=== PATIENT | male | born 1965 | race Caucasian/White ===

== ENCOUNTER → 2020-02-15 15:19 | Outpatient (CLI) | payer BC, SELFPAY ==
--- NOTE | 2020-02-15 | COLBX_PTH ---
PATIENT: LYNN OSORIO LOC: [facility] U#:[id number] AGE/SX: 59/M ROOM: RE02/15/[address]: Dr. Gal Rodriguez MD : 1965 BED: DIS: SPEC #: [id number] RECD: 02/15/20 15:13 STATUS: HAZEL SARKIS #: [id number] MILENA: 02/15/20 00:[address]: Gal Rodriguez DEPT: SURGICAL PATHOLOGY RECD BY: Charles Oliveira ENTERED: 02/18/20 08:46 SP TYPE: COLON BX OTHR DR: INO Tissues: A - Right colon B - Sigmoid colon biopsy Procedures: Surgery Specimen Level IV HEADER OPERATION: Colonoscopy with biopsies PRE-OP DIAGNOSIS: History UC; diarrhea TISSUE SUBMITTED: A - Biopsy right colon, rule out UC, B - Biopsy distal sigmoid/rectum, rule out active UC/dysplasia MICROSCOPIC DIAGNOSIS A. Right colon, biopsy: Melanosis coli. No evidence of colitis. B. Distal sigmoid/rectum, biopsy: Focal acute colitis. See microscopic description and comment. AM:kristie 02/19/20 COMMENT B. Eosinophils are mildly increased in the mucosa. The significance of this is unclear. Clinical correlation is suggested. MICROSCOPIC DESCRIPTION Slides are reviewed. B. There is focal cryptitis identified without crypt abscesses, ulceration or significant glandular distortion. GROSS DESCRIPTION A - Received in fixative is one container labeled with the patient's name and designated right colon biopsy. The specimen consists of multiple irregular fragments of light rojas soft tissue that in aggregate measure 1 x 0.5 x 0.1 cm. The specimen is totally submitted in one cassette. B - Received in fixative is one container labeled with the patient's name and designated distal sigmoid. The specimen consists of multiple irregular fragments of light rojas soft tissue that in aggregate measure 0.5 x 0.5 x 0.1 cm. The specimen is totally submitted in one cassette. / AM:kristie 02/18/20 TC:2 CPT: 10167 x2
== END ==
PROVIDERS: Referring Provider Internal Medicine Gastroenterology; Visit Provider Internal Medicine Gastroenterology
DX: K51.90 Ulcerative colitis, unspecified, without complications (principal); R19.7 Diarrhea, unspecified
CPT/HCPCS: 88305

== ENCOUNTER 2020-06-06 09:30 | Outpatient (RCR) | payer BC, SELFPAY ==
[2020-05-30] MEDS: COVID-19 VACC, MRNA(PFIZER)/PF 30 MCG/0.3 ML SYRINGE IM (07:04)
[2020-06-20] MEDS: COVID-19 VACC, MRNA(PFIZER)/PF 30 MCG/0.3 ML SYRINGE IM (06:52)
== END 2020-06-06 23:59 ==
LOC: IMMUN 09:30
PROVIDERS: PCP Family Medicine; Visit Provider Family Medicine
DX: Z23 Encounter for immunization (principal)
CPT/HCPCS: 0001A; 0002A; 91300

== ENCOUNTER → 2020-11-11 13:59 | Outpatient (CLI) | payer BC, SELFPAY ==
--- NOTE | 2020-11-11 14:04 | RAD_ITS ---
INDICATION: PAIN EXAMINATION/TECHNIQUE: X-RAY - XR Chest 2 Views COMPARISON: None. FINDINGS: LINES/DEVICES: None. LUNGS: No consolidation, edema or effusion. No pneumothorax. MEDIASTINUM AND CARDIOVASCULAR STRUCTURES: Cardiac silhouette not enlarged. Central airways and mediastinal contour are unremarkable. BONES AND SOFT TISSUES: Unremarkable. RAD/Chest PA and Lateral IMPRESSION: No radiographic evidence of acute cardiopulmonary disease. Electronically Signed: King Finney MD at 15:32 EDT Tel , Service support ,
[2020-11-11 15:15] LABS: Absolute Lymphocyte Count 0.84 X10^3/uL (0.83-4.51); Absolute Neutrophil Count 3.1 X10^3/uL (2.0-7.7); Basophil# 0.02 X10^3/uL; Basophil% 0.5 % (0-1); Eosinophil# 0.03 X10^3/uL; Eosinophils% 0.7 % (0-5); Hematocrit 39.9 % (40-54); Hemoglobin 13.4 g/dL (13.0-16.5); Lymphocyte # 0.84 X10^3/ul (0.83-4.51); Lymphocyte % 19.3 % (19-41); Mean Corp Hgb Conc 33.6 g/dL (32-36); Mean Corpuscular Volume 92.4 fL (80-94); Mean Platelet Vol. 10.2 fl (6.2-12.0); Monocyte# 0.39 X10^3/uL; Monocyte% 8.9 % (0-10); NRBC Flagged by Analyzer 0 % (0-5); Neutrophil # 3.07 X10^3/uL (2.7-7.7); Neutrophil % 70.4 % (47-70); Platelet Count 241 K/mm3 (150-450); RBC Distribution Width SD 44.7 fl (35.1-43.9); Red Blood Count 4.32 M/mm3 (4.6-6.2); White Blood Count 4.4 K/mm3 (4.4-11.0)
== END ==
PROVIDERS: PCP Family Medicine; Referring Provider Internal Medicine Gastroenterology; Visit Provider Internal Medicine Gastroenterology
DX: R07.9 Chest pain, unspecified (principal)
CPT/HCPCS: 36415; 71046; 85025

== ENCOUNTER → 2020-11-13 12:08 | Outpatient (CLI) | payer BC, SELFPAY ==
--- NOTE | 2020-11-13 12:10 | EKG12_ITS ---
Test Reason : ATYPICAL CP Blood Pressure : / mmHG Vent. Rate : 062 BPM Atrial Rate : 062 BPM P-R Int : 152 ms QRS Dur : 098 ms QT Int : 414 ms P-R-T Axes : 034 071 048 degrees QTc Int : 420 ms Normal sinus rhythm Normal ECG Confirmed by MELINA MARIA, BRIANA ([id number]), publishing editor FLAKITA AVILEZ ([id number]) on 11/18/2020 8:15:18 AM Referred By: Gal Rodriguez Confirmed By:TREVOR SUMMERS MD
== END ==
PROVIDERS: PCP Family Medicine; Referring Provider Internal Medicine Gastroenterology; Visit Provider Internal Medicine Gastroenterology
DX: R07.89 Other chest pain (principal)
CPT/HCPCS: 93005

== ENCOUNTER → 2022-10-13 | Outpatient (CLI) | payer BC, SELFPAY ==
[2022-10-13 17:38] LABS: Absolute Lymphocyte Count 1.26 X10^3/uL (0.83-4.51); Absolute Neutrophil Count 2.8 X10^3/uL (2.0-7.7); Basophil# 0.03 X10^3/uL; Basophil% 0.7 % (0-1); Eosinophil# 0.08 X10^3/uL; Eosinophils% 1.7 % (0-5); Hematocrit 41.7 % (40-54); Hemoglobin 13.6 g/dL (13.0-16.5); Lymphocyte # 1.26 X10^3/ul (0.83-4.51); Lymphocyte % 27.5 % (19-41); Mean Corp Hgb Conc 32.6 g/dL (32-36); Mean Corpuscular Hgb 31.1 pg (27.0-32.0); Mean Corpuscular Volume 95.4 fL (80-94); Mean Platelet Vol. 9.7 fl (6.2-12.0); Monocyte# 0.45 X10^3/uL; Monocyte% 9.8 % (0-10); NRBC Flagged by Analyzer 0 % (0-5); Neutrophil # 2.75 X10^3/uL (2.7-7.7); Neutrophil % 60.1 % (47-70); Platelet Count 262 K/mm3 (150-450); RBC Distribution Width CV 13.3 % (11.6-14.6); RBC Distribution Width SD 46.9 fl (35.1-43.9); Red Blood Count 4.37 M/mm3 (4.6-6.2); White Blood Count 4.6 K/mm3 (4.4-11.0)
== END | disposition home or self-care (01) ==
PROVIDERS: PCP Nurse Practitioner Primary Care; Referring Provider Internal Medicine Gastroenterology; Visit Provider Internal Medicine Gastroenterology
DX: K51.90 Ulcerative colitis, unspecified, without complications (principal)
CPT/HCPCS: 36415; 85025

== ENCOUNTER → 2023-05-13 | Outpatient (CLI) | payer BC, SELFPAY ==
[2023-05-13 15:44] LABS: Absolute Lymphocyte Count 1.11 X10^3/uL (0.83-4.51); Absolute Neutrophil Count 3.3 X10^3/uL (2.0-7.7); Basophil# 0.03 X10^3/uL; Basophil% 0.6 % (0-1); Eosinophil# 0.07 X10^3/uL; Eosinophils% 1.4 % (0-5); Hematocrit 39.2 % (40-54); Hemoglobin 12.9 g/dL (13.0-16.5); Lymphocyte # 1.11 X10^3/ul (0.83-4.51); Lymphocyte % 22.1 % (19-41); Mean Corp Hgb Conc 32.9 g/dL (32-36); Mean Corpuscular Hgb 31.3 pg (27.0-32.0); Mean Corpuscular Volume 95.1 fL (80-94); Monocyte% 9.9 % (0-10); NRBC Flagged by Analyzer 0 % (0-5); Neutrophil # 3.31 X10^3/uL (2.7-7.7); Neutrophil % 65.8 % (47-70); Platelet Count 244 K/mm3 (150-450); RBC Distribution Width CV 13.9 % (11.6-14.6); RBC Distribution Width SD 48.5 fl (35.1-43.9); Red Blood Count 4.12 M/mm3 (4.6-6.2)
--- OUTSIDE RECORDS SUMMARY | 2023-05-13 16:56 | XMS RPT_ITS | CCD ---
Author Name Unknown Address [address] [place] [address] Organization [facility] Care Team Providers Care Tax Processor Name Role Phone NOLAN ESCOBEDO Unavailable Unavailable MARYCHUY SHAHID Primary Care Physician ([phone]) MARYCHUY SHAHID Attending Unavaildoris e MARYCHUY SHAHID Primary Care Unavailabl e Medications Current Medications Medication Drug Class(es) Dates Sig (Normalized) Sig (Original) acetaminophen 500 mg oral tablet (1 source) Start: 02-17-2022 acetaminophen 500 mg oral tablet Dose : 1,000 mg = 2 tab(s), Oral, TID, PRN pain or fever, 0 Refill(s) Start Date: 02/17/22 Status: Ordered flax seed oil 1000 mg oral capsule (1 source) Start: 05-23-2020 flax seed oil 1000 mg oral capsule Dose : 1,000 mg = 1 cap(s), Oral, Daily, 1200 mg, 0 Refill(s) Start Date: 05/23/20 Status: Ordered lisinopril 5 mg oral tablet (1 source) Angiotensin Converting Enzyme Inhibitor Start: 10-13-2022 lisinopril 5 mg oral tablet Dose : 5 mg = 1 tab(s), Oral, qDay, # 90 tab(s), 3 Refill(s), [facility], Hypertension, 189.86, cm, 07/28/22 6:56:00 EDT, Height, kg, 07/28/22 6:56:00 EDT, Dosing Weight Start Date: 10/13/22 Status: Ordered mercaptopurine 50 mg oral tablet (1 source) Nucleoside Metabolic Inhibitor Start: 05-23-2020 mercaptopurine 50 mg oral tablet Dose : 50 mg = 1 tab(s), Oral, Daily, 0 Refill(s) Start Date: 05/23/20 Status: Ordered Multivitamin preparation (1 source) Start: 05-23-2020 take 1 tablet by mouth once daily Multivitamin Dose = 1 tab(s), Oral, Daily, 0 Refill(s) Start Date: 05/23/20 Status: Ordered Vitamin C 500 mg oral tablet (1 source) Start: 05-23-2020 Vitamin C 500 mg oral tablet Dose : 500 mg = 1 tab(s), Oral, qDay, 0 Refill(s) Start Date: 05/23/20 Status: Ordered Problems Problem Classification Problem Date Documented Date Episodic/Chronic Blindness and vision defects (1 source) Wears glasses 06-11-2020 Episodic Essential hypertension (3 sources) Hypertensive disorder; Translations: [Essential (primary) hypertension] Onset: 02-18-2023 03-18-2021 Chronic Heart valve disorders (1 source) Aortic valve regurgitation 04-08-2021 Chronic Other lower respiratory disease (1 source) Dyspnea 06-03-2021 Episodic Other lower respiratory disease (1 source) Dyspnea on exertion 06-11-2020 Episodic Regional enteritis and ulcerative colitis (1 source) Ulcerative colitis 05-23-2020 Chronic Retinal detachments; defects; vascular occlusion; and retinopathy (1 source) Retinal detachment 06-11-2020 Episodic Results Test Name Value Interpretation Reference Range Facil ity Encounters Encounter Date Encounter Type Care Provider Facility Start: 02-18-2023 End: 02-23-2023 ambulatory MARYCHUY MATTHEWS APRN-[facility] Facility:B Start: 02-18-2023 End: 02-22-2023 [facility] Start: 02-17-2017 End: 02-17-2017 Ambulatory NOLAN ESCOBEDO [facility] Procedures Date Procedure Procedure Detail Performing Clinician Start: 04-02-2021 Echocardiography MARYCHUY HIDALGO [facility] Immunizations Immunization Date Immunization Notes Care Provider Fa cility 02-18-2023 tetanus toxoid, redu brianda diphtheria toxoid, and acellular pertussis vaccine, adsorbed; Translations: [Boostrix (Tdap)] MARYCHUY MATTHEWS [facility] 01-31-2023 influenza virus vaccine, unspecified formulation MARYCHUY MATTHEWS [facility] 01-31-2023 SARS-CoV-2 (COVID-19 ) [id number] MARYCHUY MATTHEWS [facility] 12-08-2021 influenza virus vaccine, unspecified [facility] 02-04-2021 SARS-CoV-2 (COVID-19 ) [id number] [facility] 12-25-2020 influenza virus vaccine, unspecified formulation MARYCHUY MATTHEWS [facility] 06-20-2020 SARS-CoV-2 mRNA (tozinameran) vaccine [facility] 05-30-2020 SARS-CoV-2 mRNA (tozinameran) vaccine [facility] Payers Date Payer Category Payer Self-pay 1965 Unknown [id number] Social History Date Type Detail Facility Start: 05-23-2020 Tobacco smoking status Never s moked tobacco (finding) [facility] Sex Assigned At Male [facility] Evaluation + Plan note 02-18-2023 Laboratory Note Date & Type Note Facility 02-18-2023 Evaluation + Plan note Future Scheduled TestsProstate Specific Antigen 02/18/23Prostate Specific Antigen 01/28/23Complete Blood Count 02/18/23Complete Blood Count 01/28/23Lipid Profile 02/18/23Lipid Profile 01/28/23Complete Metabolic Panel 02/18/23Complete Metabolic Panel 01/28/23 [facility] Hospital course Narrative Note Date & Type Note Facility Hospital course Narrative No data available for this section [facility] Hospital Discharge instructions Note Date & Type Note Facility Hospital Discharge instructions No data available for this section [facility] Progress note Note Date & Type Note Facility Progress note No data available for this section [facility] Summary Purpose Family History No Family History Records Found No data available for this section No Family History Records Found Advance Directives No Advanced Directives Records FoundNo Advanced Directives Records Found Additional Source Comments (unrecognized sect ion and content) No Status Records FoundNo Status Records Found INFORMATION SOURCE (unrecogn ized section and content) DATE CREATED AUTHOR AUTHOR'S ORGANIZ ATION 02/25/2023 [facility] ([place]) Patient Care team informatio n (unrecognized section and content) Care Team Personnel Name: MARYCHUY MATTHEWS APRN-[facility] Position: P4 Advanced Drug And Alcohol Treatment Specialist Member Role: Primary Care Physician Address: Address: [address] [place] [address]- Name: ABELARDO OROZCO MD Position: P4 Physician - Cardiology Member Role: Media Aid Address: Address: [address] [facility] [place] [address]- Name: KIRSTEN MEDLEY MD Position: Physician Member Role: Fire Eater Address: Address: [address] [place] [address]- [place] Care Team Related Persons Name: VANE OSORIO FOR RECORDS PERTAINING TO PATIENTS WHO ARE OR HAVE BEEN ENROLLED IN A CHEMICAL DEPENDENCY/SUBSTANCEABUSE PROGRAM, SOME INFORMATION MAY BE OMITTED. This clinical summary was aggregated from multiple sources. Caution should be exercised in using it in the provision of clinical care. This summary normalizes information from multiple sources, and as a consequence, information in this document may materially change the coding, format and clinical context of patient data. In addition, data may be omitted in some cases. CLINICAL DECISIONS SHOULD BE BASED ON THE PRIMARY CLINICAL RECORDS. [facility]. provides no warranty or guarantee of the accuracy or completeness of information in this document.
== END | disposition home or self-care (01) ==
LOC: MTLAB 14:13
PROVIDERS: PCP Nurse Practitioner Primary Care; Referring Provider Internal Medicine Gastroenterology; Visit Provider Internal Medicine Gastroenterology
DX: K51.90 Ulcerative colitis, unspecified, without complications (principal)
CPT/HCPCS: 36415; 85025